=== PATIENT | female | born 1995 | race American Indian/Alaskan Native ===

== ENCOUNTER 2016-07-03 23:37 | Outpatient (CLI) | payer MEDICAID ==
[2016-07-04] MEDS ORDERED: LACTATED RINGERS 500 ML IV ONE (00:21)
== END 2016-07-04 00:57 | disposition home or self-care (01) ==
LOC: TRG 23:37
PROVIDERS: ATTEND Obstetrics & Gynecology
DX: O26.892 Other specified pregnancy related conditions, second trimester (principal); O21.9 Vomiting of pregnancy, unspecified; R11.0 Nausea; R51 Headache; O77.9 Labor and delivery complicated by fetal stress, unspecified; Z3A.20 20 weeks gestation of pregnancy

== ENCOUNTER 2016-10-22 22:02 | Outpatient (CLI) | payer MEDICAID ==
[2016-10-22 22:43] VITALS: BP 106/62
[2016-10-23] MEDS ORDERED: LACTATED RINGERS 1,000 ML ONE (00:03)
[2016-10-23 00:07] LABS: Hematocrit 28.1 % (30.3-42.9); Hemoglobin 9.2 gm/dl (10.1-14.3); Mean Corpuscular HGB Conc 33 % (30-34); Mean Corpuscular Hemoglobin 27 pg (28-32); Mean Corpuscular Volume 83 fl (79-97); Platelet Count 293 K/mm3 (140-440); Red Cell Distribution Width 14.8 % (13.2-15.2); White Blood Count 8.1 K/mm3 (4.5-11.0)
[2016-10-23] MEDS ORDERED: LACTATED RINGERS 1,000 ML IV SCH (00:30)
[2016-10-23] MEDS ORDERED: PEPCID IV ONE ×2 (00:30→00:32)
[2016-10-23 00:33] LABS: Alanine Aminotransferase 14 units/L (7-56); Albumin 3.1 g/dL (3.9-5); Albumin/Globulin Ratio 0.9 %; Alkaline Phosphatase 137 units/L (35-129); Anion Gap 18 mmol/L; BUN/Creatinine Ratio 16.66; Bilirubin,Total 0.2 mg/dL (0.1-1.2); Blood Urea Nitrogen 5 mg/dL (7-17); Calcium 8.7 mg/dL (8.4-10.2); Carbon Dioxide 21 mmol/L (22-30); Chloride 100.6 mmol/L (98-107); Glucose 73 mg/dL (65-100); Potassium 4.6 mmol/L (3.6-5.0); Sodium 135 mmol/L (137-145); Total Protein 6.4 g/dL (6.3-8.2)
[2016-10-23 02:07] LABS: Amylase 99 units/L (27-131); Lipase 115 units/L (13-60)
== END 2016-10-23 02:00 | disposition home or self-care (01) ==
LOC: TRG 22:02
PROVIDERS: ATTEND Obstetrics & Gynecology
DX: O47.03 False labor before 37 completed weeks of gestation, third trimester (principal); Z3A.36 36 weeks gestation of pregnancy
CPT/HCPCS: 36415; 80053; 82150; 83690; 85027; 96360; 96374; J7120

== ENCOUNTER 2016-11-02 20:58 | Outpatient (CLI) | payer MEDICAID ==
[2016-11-02 21:16] VITALS: BP 119/59
== END 2016-11-02 21:44 | disposition home or self-care (01) ==
LOC: TRG 20:58
PROVIDERS: ATTEND Obstetrics & Gynecology
DX: O26.893 Other specified pregnancy related conditions, third trimester (principal); O62.9 Abnormality of forces of labor, unspecified; Z3A.39 39 weeks gestation of pregnancy
CPT/HCPCS: 59025

== ENCOUNTER 2016-11-13 00:40 | Outpatient (CLI) | payer MEDICAID ==
[2016-11-13 00:55] VITALS: BP 125/71
--- NOTE | 2016-11-13 07:38 | Ultrasound Report ---
BIOPHYSICAL PROFILE: INDICATION: well being. COMPARISON: None similar. TECHNIQUE: Transabdominal ultrasound with Doppler interrogation. 2 - breathing movements 2 - movements 2 - posture and tone 2 - Qualitative amniotic fluid volume 8 - TOTAL SCORE OF POSSIBLE 8 Heart Rate (bpm) 137
--- NOTE | 2016-11-13 07:41 | Ultrasound Report ---
OB LIMITED INDICATION: well being. COMPARISON: None similar at this institution. TECHNIQUE: Transabdominal grayscale ultrasound with Doppler interrogation. Gestation: Torres Amniotic Fluid: Increased (>24 cm) ISAAC = 24.9 cm Heart Rate: 129 BPM
== END 2016-11-13 03:50 | disposition home or self-care (01) ==
LOC: TRG 00:40
PROVIDERS: ATTEND Obstetrics & Gynecology
DX: O47.1 False labor at or after 37 completed weeks of gestation (principal); Z3A.39 39 weeks gestation of pregnancy
CPT/HCPCS: 76815; 76819

== ENCOUNTER 2017-02-24 20:36 | Emergency (ER) | payer MEDICAID, OTHER ==
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
[2017-02-24 22:15] LABS: Bilirubin,Urine NEG (Negative); Blood,Urine LG (Negative); Ketones,Urine TR mg/dL (Negative); Leukocyte Esterase,Urine MOD (Negative); Mucus,Urine 3+ /HPF; Nitrite,Urine NEG (Negative); Urobilinogen,Urine < 2.0 mg/dL (<2.0)
[2017-02-24 22:17] LABS: RBC,Urine > 182.0 /HPF (0.0-6.0)
[2017-02-24] MEDS ORDERED: MOTRIN PO ONE (23:37)
[2017-02-24] MEDS ORDERED: MOTRIN ONE (23:39)
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
[2017-02-25] MEDS ORDERED: FLEXERIL PO ONE (00:19)
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
[2017-02-25 02:26] VITALS: BP 105/98
== END 2017-02-25 02:26 | disposition home or self-care (01) ==
LOC: ED 20:36
DX: S13.4XXA Sprain of ligaments of cervical spine, initial encounter (principal); S80.02XA Contusion of left knee, initial encounter; N39.0 Urinary tract infection, site not specified; M25.552 Pain in left hip; R51 Headache; R07.81 Pleurodynia; Z87.891 Personal history of nicotine dependence; Z88.6 Allergy status to analgesic agent; Z88.8 Allergy status to other drugs, medicaments and biological substances; V89.2XXA Person injured in unspecified motor-vehicle accident, traffic, initial encounter; Y93.89 Activity, other specified; Y99.8 Other external cause status; Y92.89 Other specified places as the place of occurrence of the external cause
CPT/HCPCS: 70450; 71020; 71110; 72125; 81001; 81025

== ENCOUNTER 2017-10-22 16:27 | Emergency (ER) | payer SELFPAY ==
[2017-10-22 17:12] LABS: Basophils # (Auto) 0.1 K/mm3 (0.0-0.1); Basophils % (Auto) 0.6 % (0.0-1.8); Eosinophils % (Auto) 0.5 % (0.0-4.3); Hematocrit 33.1 % (30.3-42.9); Hemoglobin 11.3 gm/dl (10.1-14.3); Lymphocytes # (Auto) 1.4 K/mm3 (1.2-5.4); Lymphocytes % (Auto) 16.4 % (13.4-35.0); Mean Corpuscular HGB Conc 34 % (30-34); Mean Corpuscular Hemoglobin 31 pg (28-32); Mean Corpuscular Volume 89 fl (79-97); Monocytes # (Auto) 0.5 K/mm3 (0.0-0.8); Platelet Count 353 K/mm3 (140-440); Red Cell Distribution Width 13.4 % (13.2-15.2)
--- NOTE | 2017-10-22 18:00 | Emergency Department Report ---
ED Female HPI - General Chief complaint: Abdominal Pain Stated complaint: BACK/PELVIC PAIN Time Seen by Provider: 10/22/17 17:53 Source: patient Mode of arrival: Ambulatory Limitations: No Limitations - History of Present Illness Initial comments: Patient is 21 years old female 6 para 3 with 2 . Patient presented to the ER complaining of lower abdominal pain and vaginal bleeding for the last 4 days. Patient did not have any care so far. Last menstrual period was 05/01/2017. Denied any nausea or vomiting. no fever. MD Complaint: vaginal bleeding, pelvic pain -: days(s) Radiation: suprapubic Quality: cramping - Related Data Previous Rx's Medication Instructions Recorded Last Taken Type Cyclobenzaprine [Flexeril] 10 mg PO TID PRN #15 tablet 02/25/17 Unknown Rx Ibuprofen [Motrin 600 MG tab] 600 mg PO Q8H PRN #30 tablet 02/25/17 Unknown Rx Sulfamethoxazole/Trimethoprim 1 each PO BID #14 tablet 02/25/17 Unknown Rx [Bactrim DS TAB] Allergies Allergy/AdvReac Type Severity Reaction Status Date / Time morphine Allergy Itching Verified 06/19/16 22:47 diphenhydramine HCl AdvReac Itching Verified 04/15/16 10:58 [From Benadryl] ED Review of Systems ROS: Stated complaint: BACK/PELVIC PAIN Other details as noted in HPI Comment: All other systems reviewed and negative Constitutional: denies: chills, fever Respiratory: denies: cough, orthopnea, shortness of breath, SOB with exertion, SOB at rest, wheezing Cardiovascular: denies: chest pain, palpitations, dyspnea on exertion Gastrointestinal: abdominal pain. denies: nausea, vomiting, diarrhea, constipation, hematemesis, melena, hematochezia Genitourinary: denies: urgency, dysuria, frequency, discharge, dyspareunia Musculoskeletal: denies: back pain Neurological: denies: headache, weakness, numbness, paresthesias, confusion, abnormal gait, vertigo ED Past Medical Hx - Past Medical History Previous Medical History?: Yes Hx Hypertension: No Hx Diabetes: No Hx Deep Vein Thrombosis: No Hx Renal Disease: No Hx Sickle Cell Disease: No Hx Seizures: No Hx Asthma: No Hx HIV: No Additional medical history: vaginal deleivery x 3 - Surgical History Past Surgical History?: No - Social History Smoking Status: Never Smoker Substance Use Type: Marijuana - Medications Home Medications: Home Medications Medication Instructions Recorded Confirmed Last Taken Type Cyclobenzaprine [Flexeril] 10 mg PO TID PRN #15 tablet 02/25/17 Unknown Rx Ibuprofen [Motrin 600 MG tab] 600 mg PO Q8H PRN #30 tablet 02/25/17 Unknown Rx Sulfamethoxazole/Trimethoprim 1 each PO BID #14 tablet 02/25/17 Unknown Rx [Bactrim DS TAB] ED Physical Exam - General Limitations: No Limitations General appearance: alert, in no apparent distress - Head Head exam: Present: atraumatic, normocephalic, normal inspection - Eye Eye exam: Present: normal appearance, PERRL - ENT ENT exam: Present: normal exam, normal orophraynx, mucous membranes moist - Neck Neck exam: Present: normal inspection, full ROM. Absent: tenderness, meningismus, lymphadenopathy, thyromegaly - Respiratory Respiratory exam: Present: normal lung sounds bilaterally. Absent: respiratory distress, wheezes, rales, rhonchi, stridor, chest wall tenderness, accessory muscle use, decreased breath sounds, prolonged expiratory - Cardiovascular Cardiovascular Exam: Present: regular rate, normal rhythm, normal heart sounds - GI/Abdominal GI/Abdominal exam: Present: soft, normal bowel sounds, organomegaly (gravid uterus). Absent: distended, tenderness, guarding, rebound, rigid, mass, bruit, pulsatile mass, hernia - Extremities Exam Extremities exam: Present: normal inspection, full ROM, normal capillary refill. Absent: pedal edema, calf tenderness - Back Exam Back exam: Present: normal inspection, full ROM. Absent: tenderness, CVA tenderness (R), CVA tenderness (L) - Neurological Exam Neurological exam: Present: alert, oriented X3, CN II-XII intact, reflexes normal. Absent: normal gait, abnormal gait - Skin Skin exam: Present: warm, intact ED Course Vital Signs 10/22/17 10/22/17 10/22/17 16:37 18:31 18:53 Temperature 98.8 F Pulse Rate 93 H 84 Respiratory 16 18 16 Rate Blood Pressure 131/58 Blood Pressure 94/49 [Left] O2 Sat by Pulse 100 99 100 Oximetry 10/22/17 19:19 Temperature Pulse Rate 88 Respiratory 18 Rate Blood Pressure Blood Pressure 102/56 [Left] O2 Sat by Pulse 99 Oximetry ED Medical Decision Making - Lab Data Result diagrams: 10/22/17 16:53 10/22/17 18:09 - Radiology Data Radiology results: report reviewed Referring Physician: JUAN MANUEL MARTÍNEZ Patient Name: DARRIUS CURRY Date of : 1995 Sex: Female Report Date: 2017-10-22 Report Status: Finalized Findings [facility] [address] [place] [address] Ultrasound Report Signed Patient: DARRIUS CURRY MR#: [id number] : 1995 Acct:[id number] Age/Sex: 21 / F ADM Date: 10/22/17 Loc: ED Attending Dr: Ordering Physician: JUAN MANUEL MARTÍNEZ Date of Service: 10/22/17 Procedure(s): US OB >= 14 weeks Fetus Accession Number(s): [id number] cc: JUAN MANUEL MARTÍNEZ FINAL REPORT PROCEDURE: US OB gt; = 14 WEEKS FETUS TECHNIQUE: Real-time transabdominal sonography of the uterus, placenta, amniotic fluid, adnexa, and fetus was performed with image documentation. Measurements were obtained to determine age/size. M-mode Doppler was used to document heartbeat. CPT 75089 HISTORY: unconfirmed with low back and pelvic pain COMPARISON: No prior studies are available for comparison. FINDINGS: ADDITIONAL GESTATION: None. GENERAL: IUP: Single living intrauterine . Position: Cephalic Placental position: Anterior and grade 1, without previa. Amniotic fluid volume: Not measured but subjectively within normal limits MATERNAL: Uterus: Within normal limits. Cervical length: Transabdominal measurement is 3.6 cm. Internal Os: Closed. FETUS: Heart rate and rhythm: 154 BPM, regular. anatomic survey: Fluid containing stomach, fluid containing urinary bladder, three-vessel cord, anterior abdominal wall cord insertion, four-chamber view of the heart, kidneys are unremarkable in appearance. spine is not well-visualized MEASUREMENTS: BPD: 4.6 centimeters, 20 weeks 0 days HC: 17.0 centimeters, 19 weeks 4 days AC: 13.4 centimeters, 18 weeks 6 days FL: 3.1 centimeters, 19 weeks 5 days Mean Gestational Age (composite criteria): 19 weeks 4 days based on biometry biometry ratio: HC/AC is mildly elevated, 1.27 Estimated Weight: 284 grams. Estimated Due Date: 03/14/2018 IMPRESSION: Single intrauterine gestation at 19 weeks 4 days based on biometric measurements. Estimated due date: 03/14/2018. Transcribed By: [facility] Dictated By: [place] BEAR M.D. Electronically Authenticated By: [place] BEAR M.D. Signed Date/Time: 10/22/171858 DD/ 58 TD/TT: 10/22/171858 Critical care attestation.: If time is entered above; I have spent that time in minutes in the direct care of this critically ill patient, excluding procedure time. ED Disposition Clinical Impression: Abdominal pain affecting , Heart burn Disposition: DC-01 TO HOME OR SELFCARE Is pt being admited?: No Condition: Stable Instructions: Abdominal Pain in (ED), Gastroesophageal Reflux Disease (ED) Referrals: PRIMARY MD LESLY [Primary Care Provider] - 3-5 Days RACHEL PEÑA MD [Staff Physician] - 3-5 Days
[2017-10-22 18:01] LABS: Bilirubin,Urine NEG (Negative); Blood,Urine SM (Negative); Color,Urine Yellow (Yellow); Mucus,Urine 3+ /HPF; Protein,Urine <15 mg/dL mg/dL (Negative); Urobilinogen,Urine < 2.0 mg/dL (<2.0)
--- NOTE | 2017-10-22 19:05 | Ultrasound Report ---
FINAL REPORT PROCEDURE: US OB > = 14 WEEKS FETUS TECHNIQUE: Real-time transabdominal sonography of the uterus, placenta, amniotic fluid, adnexa, and fetus was performed with image documentation. Measurements were obtained to determine age/size. M-mode Doppler was used to document heartbeat. CPT 32908 HISTORY: unconfirmed with low back and pelvic pain COMPARISON: No prior studies are available for comparison. FINDINGS: ADDITIONAL GESTATION: None. GENERAL: IUP: Single living intrauterine . Position: Cephalic Placental position: Anterior and grade 1, without previa. Amniotic fluid volume: Not measured but subjectively within normal limits MATERNAL: Uterus: Within normal limits. Cervical length: Transabdominal measurement is 3.6 cm. Internal Os: Closed. FETUS: Heart rate and rhythm: 154 BPM, regular. anatomic survey: Fluid containing stomach, fluid containing urinary bladder, three-vessel cord, anterior abdominal wall cord insertion, four-chamber view of the heart, kidneys are unremarkable in appearance. spine is not well-visualized MEASUREMENTS: BPD: 4.6 centimeters, 20 weeks 0 days HC: 17.0 centimeters, 19 weeks 4 days AC: 13.4 centimeters, 18 weeks 6 days FL: 3.1 centimeters, 19 weeks 5 days Mean Gestational Age (composite criteria): 19 weeks 4 days based on biometry biometry ratio: HC/AC is mildly elevated, 1.27 Estimated Weight: 284 grams. Estimated Due Date: 03/14/2018 IMPRESSION: Single intrauterine gestation at 19 weeks 4 days based on biometric measurements. Estimated due date: 03/14/2018.
[2017-10-22 19:07] LABS: BUN/Creatinine Ratio 17; Blood Urea Nitrogen 5 mg/dL (7-17); Hemolysis Index 12
[2017-10-22 20:14] VITALS: BP 108/51
== END 2017-10-22 20:14 | disposition home or self-care (01) ==
LOC: ED 16:27
DX: O26.892 Other specified pregnancy related conditions, second trimester (principal); R10.30 Lower abdominal pain, unspecified; R12 Heartburn; F12.10 Cannabis abuse, uncomplicated; Z3A.19 19 weeks gestation of pregnancy
CPT/HCPCS: 36415; 76805; 80048; 81001; 84702; 84703; 85025; 86850; 86900; 86901; 99284

== ENCOUNTER 2018-02-24 21:14 | Inpatient (IN) | payer MEDICAID ==
[2018-02-24] MEDS ORDERED: LACTATED RINGERS 1,000 ML IV ONE (22:03)
[2018-02-24] MEDS ORDERED: TYLENOL PO ONE (22:56)
[2018-02-24] MEDS ORDERED: PEPCID IV ONE (22:58)
[2018-02-24] MEDS ORDERED: BRETHINE SUB-Q PRN (23:00)
[2018-02-24] MEDS ORDERED: BRETHINE IVP PRN (23:00)
[2018-02-24] MEDS ORDERED: MINERAL OIL PO PRN (23:00)
[2018-02-24] MEDS ORDERED: SUBLIMAZE IV PRN (23:00)
[2018-02-24] MEDS ORDERED: XYLOCAINE 2% INFILTRATI ONE (23:00)
[2018-02-24] MEDS ORDERED: PITOCin/NS 30 UNIT/500ML 30 UNITS/500 ML BAG IV SCH (23:00)
[2018-02-24] MEDS ORDERED: PITOCin/NS 20 UNIT/1000ML DRIP 20 UNITS/1,000 ML BAG IV SCH (23:00)
[2018-02-24 23:07] LABS: Hematocrit 26.1 % (30.3-42.9); Hemoglobin 8.9 gm/dl (10.1-14.3); Mean Corpuscular HGB Conc 34 % (30-34); Mean Corpuscular Hemoglobin 29 pg (28-32); Mean Corpuscular Volume 84 fl (79-97); Platelet Count 295 K/mm3 (140-440); Red Blood Count 3.11 M/mm3 (3.65-5.03); Red Cell Distribution Width 15.2 % (13.2-15.2)
[2018-02-24] MEDS: LACTATED RINGERS 1,000 ML IV SCH (23:25)
[2018-02-24] MEDS ORDERED: POLYCILLIN/NS 2 GM/100 ML 2 GM/100 ML BAG IV ONE (23:32)
[2018-02-25] MEDS: LACTATED RINGERS 1,000 ML IV SCH ×2 (00:37→02:04)
[2018-02-25] MEDS ORDERED: NARCAN 2 MG/2 ML IV PRN (01:39)
[2018-02-25] MEDS ORDERED: ZOFRAN IV PRN ×2 (01:39→05:32)
[2018-02-25] MEDS ORDERED: fentaNYL-BUPIV 2 MCG/ML-0.125% 200 MCG/100 ML BAG EPIDURAL SCH (02:00)
[2018-02-25] MEDS ORDERED: AMPICILLIN/NS 1 GM/50 ML 1 GM/50 ML BAG IV SCH (03:36)
[2018-02-25] MEDS: PITOCin/NS 20 UNIT/1000ML DRIP 20 UNITS/1,000 ML BAG IV SCH ×2 (05:19→06:52)
--- NOTE | 2018-02-25 05:31 | History and Physical Report ---
History of Present Illness Date of examination: 02/25/18 Date of admission: 02/24/18 22:07 Chief complaint: leaking History of present illness: This is a 22 yo at 37 weeka admitted to labor and delivery for PROM. She is a patient of [place]. Past History Past Medical History: no pertinent history Past Surgical History: no surgical history Family/Genetic History: none Social history: single. denies: smoking, alcohol abuse, prescription drug abuse - Obstetrical History : 6 Medications and Allergies Allergies Allergy/AdvReac Type Severity Reaction Status Date / Time morphine Allergy Itching Verified 06/19/16 22:47 diphenhydramine HCl AdvReac Itching Verified 04/15/16 10:58 [From [facility]] Home Medications Medication Instructions Recorded Confirmed Last Taken Type Cyclobenzaprine [Flexeril] 10 mg PO TID PRN #15 tablet 02/25/17 Unknown Rx Ibuprofen [Motrin 600 MG tab] 600 mg PO Q8H PRN #30 tablet 02/25/17 Unknown Rx Sulfamethoxazole/Trimethoprim 1 each PO BID #14 tablet 02/25/17 Unknown Rx [Bactrim DS TAB] Famotidine [Pepcid] 20 mg PO DAILY #30 tablet 10/22/17 Unknown Rx Vit Calc,Iron,Folic 1 each PO DAILY #30 tablet 10/22/17 Unknown Rx [ Vitamins] Active Meds: Active Medications Ephedrine Sulfate (Ephedrine Sulfate) 10 mg IV Q2M PRN PRN Reason: Hypotension Ephedrine Sulfate (Ephedrine Sulfate) 10 mg IV Q2M PRN PRN Reason: Hypotension Fentanyl (Sublimaze) 100 mcg IV Q2H PRN PRN Reason: Labor Pain Last Admin: 02/25/18 00:02 Dose: 100 mcg Lactated Ringer's (Lactated Ringers) 1,000 mls @ 125 mls/hr IV DIRECT CARMINE Last Admin: 02/25/18 02:04 Dose: 125 mls/hr Oxytocin/Sodium Chloride (Pitocin/Ns 20 Unit/1000ml Drip) 20 units in 1,000 mls @ 125 mls/hr IV DIRECT CARMINE Oxytocin/Sodium Chloride (Pitocin/Ns 30 Unit/500ml) 30 units in 500 mls @ 1 mls /hr IV TITR CARMINE; Protocol Last Admin: 08/29/18 23:24 Dose: 1 milliunits/min, 1 mls/hr Ampicillin Sodium (Ampicillin/Ns 1 Gm/50 Ml) 1 gm in 50 mls @ 100 mls/hr IV Q4HR CARMINE Stop: 02/25/18 12:00 Last Admin: 02/25/18 03:33 Dose: 100 mls/hr Fentanyl/Bupivacaine/Sodium Chlor (Fentanyl-Bupiv 2 Mcg/Ml-0.125%) 200 mcg in 100 mls @ 12 mls/hr EPIDURAL TITR CARMINE; Protocol Last Admin: 02/25/18 02:25 Dose: 12 mls/hr Mineral Oil (Mineral Oil) 30 ml PO QHS PRN PRN Reason: Constipation Naloxone HCl (Narcan 2 Mg/2 Ml) 0.2 mg IV Q5M PRN PRN Reason: Respiratory sedation Ondansetron HCl (Zofran) 4 mg IV Q8H PRN PRN Reason: Nausea And Vomiting Terbutaline Sulfate (Brethine) 0.25 mg SUB-Q ONCE PRN PRN Reason: Hyperstimulation/Hypertonicity Terbutaline Sulfate (Brethine) 0.25 mg IVP ONCE PRN PRN Reason: Hyperstimulation/Hypertonicity Review of Systems All systems: negative Genitourinary: leakage of fluid - Vital Signs Vital signs: Vital Signs Pulse BP 84 117/60 02/24/18 21:39 02/24/18 21:39 Temp Pulse Resp BP Pulse Ox 98.5 F 71 16 85/45 99 02/24/18 21:45 02/25/18 05:16 02/25/18 00:32 02/25/18 04:15 02/25/18 05:16 - Physical Exam Breasts: Positive: normal Cardiovascular: Regular rate, Normal S1 Lungs: Positive: Clear to auscultation, Normal air movement Abdomen: Positive: normal appearance, soft, normal bowel sounds. Negative: distention, tenderness, guarding Genitourinary (Female): Positive: normal external genitalia, normal perenium Vulva: both: normal Uterus: Positive: normal size Extremities: Positive: normal Deep Tendon Reflex Grade: Normal +2 - Obstetrical FHR: category 1 Uterine Contraction Monitor Mode: Palpation Cervical Dilatation: 2 Cervical Effacement Percentage: 50 station: -2 Uterine Contraction Pattern: Regular Uterine Tone Measurement Phase: Contraction Uterine Contraction Intensity: Mild Results Result Diagrams: 02/24/18 22:20 Abnormal lab results 02/24/18 Range/Units 22:20 RBC 3.11 L (3.65-5.03) M/mm3 Hgb 8.9 L (10.1-14.3) gm/dl Hct 26.1 L (30.3-42.9) % All other labs normal. Assessment and Plan A/P IUP 37 weeks PROM Augmentation of labor with low dose pitocin Records unavailable GBS prophylaxis given offer epidural expect vaginal delivery
[2018-02-25] MEDS ORDERED: PHENERGAN PR PRN (05:32)
[2018-02-25] MEDS ORDERED: PHENERGAN PO PRN (05:32)
[2018-02-25] MEDS ORDERED: TYLENOL PO PRN (05:32)
[2018-02-25] MEDS ORDERED: LANSINOH TP PRN (05:32)
[2018-02-25] MEDS ORDERED: MILK OF MAGNESIA PO PRN (05:32)
[2018-02-25] MEDS ORDERED: BENADRYL PO PRN (05:32)
[2018-02-25] MEDS ORDERED: NORCO 5/325 PO PRN (05:32)
[2018-02-25] MEDS ORDERED: PERCOCET 5/325 PO PRN (05:32)
[2018-02-25] MEDS ORDERED: DULCOLAX PR PRN (05:32)
[2018-02-25] MEDS ORDERED: TUCKS PAD TP PRN (05:32)
--- NOTE | 2018-02-25 05:45 | Procedure Note ---
OB Delivery Note - Delivery Date of Delivery: 02/25/18 Surgeon: SHAHEEN NAVARRETE Estimated blood loss: 200cc - Vaginal Delivery presentation: vertex Delivery position: OA Delivery induction: none Delivery augmentation: pitocin Delivery monitor: external FHT, external uterine Route of delivery: Delivery placenta: spontaneous Delivery cord: 3 umbilical vessels Episiotomy: none Delivery laceration: none Anesthesia: epidural Delivery comments: Patient was noted to be c/c+1 and commenced to pushing a viable male at 518 . The baby placed on mom's chest short cord noted. The cord was clamped and cut. The placenta delivered spontaeously intact with three vessel cord at 519 . Apgars 8 and 9. Weight of the baby was 6 pounds 3.7 oz. EBL noted to be 200 cc. No lacs noted. Patient bonding with baby. - Infant A at 1 minute: 8 at 5 minutes: 9 Gender: Male
[2018-02-25] MEDS ORDERED: SODIUM CHLORIDE FLUSH SYRINGE 10 ML IV NR (06:00)
[2018-02-25] MEDS: MOTRIN PO SCH ×3 (07:19→23:00)
[2018-02-25] MEDS ORDERED: PRENATAL VITAMIN PO SCH (10:00)
[2018-02-25] MEDS ORDERED: ALUM-MAG HYDROX-SIMETH 200-200-20MG/5ML PO PRN (11:00)
[2018-02-25] MEDS: NORCO 5/325 PO PRN ×3 (12:00→22:58)
--- NOTE | 2018-02-25 13:33 | Progress Note ---
Assessment and Plan O: VSS AF PP H/H: pending A: Stable PP Day 1 P; D/C at 24 hrs Subjective - Subjective Date of service: 02/25/18 Patient reports: appetite normal, voiding normally, pain well controlled ( afterbirth pains), ambulating normally, other (youngest child with hand mouth feet diease, being care for by friend with 3 children who is concerned about her childern getting sick. Pt voiced must leave in order to care for sick child. Willing to stay recommended 24hrs. ) [place]: doing well Objective - Vital Signs Latest vital signs: Vital Signs Temp Pulse Resp BP BP Pulse Ox 02/25/18 12:00 20 02/25/18 07:45 98.2 F 81 16 117/68 100 02/25/18 06:40 96.6 F L 02/25/18 06:08 67 117/55 02/25/18 05:40 96.9 F L 02/25/18 05:16 71 99 02/25/18 05:11 91 H 99 02/25/18 05:10 88 90 02/25/18 05:06 69 97 02/25/18 05:01 65 99 02/25/18 04:56 76 100 02/25/18 04:51 69 100 02/25/18 04:46 73 100 02/25/18 04:41 78 99 02/25/18 04:36 74 100 02/25/18 04:31 72 100 02/25/18 04:26 72 100 02/25/18 04:21 87 97 02/25/18 04:16 69 99 02/25/18 04:15 68 85/45 02/25/18 04:11 79 99 02/25/18 04:06 75 100 02/25/18 04:01 70 100 02/25/18 03:56 72 98 02/25/18 03:51 83 100 02/25/18 03:47 83 112/54 02/25/18 03:46 69 99 02/25/18 03:41 79 99 02/25/18 03:36 68 99 02/25/18 03:31 69 99 02/25/18 03:26 71 100 02/25/18 03:21 92 H 99 02/25/18 03:16 74 103/59 100 02/25/18 03:11 81 99 08/30/18 03:06 73 100 18 03:01 75 99 02/25/18 02:56 70 100 02/25/18 02:51 74 100 18 02:46 69 100 18 02:45 65 104/63 02/25/18 02:41 73 100 18 02:36 84 100 18 02:31 70 100 18 02:26 74 100 18 02:25 69 112/56 18 02:21 66 100 18 02:16 65 100 18 02:11 88 100 18 02:06 76 98 02/25/18 02:01 76 97 02/25/18 01:58 77 108/58 18 01:56 77 98 18 01:51 80 97 02/25/18 01:48 78 108/56 18 01:46 79 97 02/25/18 01:41 78 98 02/25/18 01:37 73 104/57 18 01:36 83 99 18 01:35 68 111/57 02/25/18 01:33 90 108/57 18 01:31 93 H 124/58 99 18 01:29 90 107/55 18 01:27 76 114/58 18 01:26 82 99 18 01:25 77 107/58 18 01:23 74 105/57 18 01:21 83 99 18 01:20 85 140/56 18 01:19 72 81 L 02/25/18 01:16 83 100 18 01:15 90 113/60 18 01:11 88 100 18 01:06 82 98 18 00:56 88 100 18 00:51 86 98 18 00:46 85 99 18 00:41 77 97 18 00:36 87 98 18 00:32 16 02/25/18 00:31 86 98 02/25/18 00:26 83 97 08/30/18 00:23 16 02/25/18 00:21 89 98 02/25/18 00:16 82 99 02/25/18 00:11 85 97 02/25/18 00:06 94 H 98 02/25/18 00:04 86 116/60 02/25/18 00:03 60 91 02/25/18 00:02 16 02/25/18 00:01 83 98 02/24/18 23:56 86 99 02/24/18 23:51 73 99 02/24/18 23:23 16 02/24/18 21:45 98.5 F 84 18 117/60 02/24/18 21:39 84 117/60 Intake and Output 02/24/18 02/25/18 02/25/18 22:59 06:59 14:59 Intake Total 718.75 Output Total 600 Balance 718.75 -600 Intake: IV 718.75 Lactated Ringers 1,000 ml 331.25 @ 125 mls/hr IV DIRECT CARMINE Rx#:[id number] PITOCin/NS 20 UNIT/1000ML 387.5 DRIP 20 units In 1,000 ml @ 250 mls/hr IV DIRECT CARMINE Rx#:[id number] Output: Urine 600 Void 600 Other: Total, Output Amount 600 Weight 61.235 kg Estimated Blood Loss 200 - Exam Breasts: Present: deferred Abdomen: Present: normal appearance, soft. Absent: distention, tenderness Uterus: Present: normal, firm, fundal height below umbilicus. Absent: bogginess , tenderness Extremities: Present: normal - Labs Labs: Abnormal lab results 02/24/18 Range/Units 22:20 RBC 3.11 L (3.65-5.03) M/mm3 Hgb 8.9 L (10.1-14.3) gm/dl Hct 26.1 L (30.3-42.9) %
--- NOTE | 2018-02-25 13:34 | Discharge Summary ---
Providers - Providers Date of Admission: 02/24/18 22:07 Date of discharge: 02/26/18 Attending physician: SHAHEEN NAVARRETE MD Primary care physician: SHAHEEN NAVARRETE MD Hospitalization Reason for admission: active labor, IUP at term Delivery: Episiotomy: none Laceration: none Other procedures: none complications: none Discharge diagnosis: IUP at term delivered [place] baby: male Condition at discharge: Good Disposition: DC-01 TO HOME OR SELFCARE Plan - Discharge Medications Prescriptions: Ferrous Sulfate 325 mg PO TID #60 tablet. HYDROcodone/APAP 5-325 [Jal 5/325] 1 each PO Q6HR PRN #20 tablet PRN Reason: Pain Ibuprofen [Motrin] 600 mg PO Q8H PRN #30 tablet PRN Reason: Pain - Provider Discharge Summary Activity: routine, no sex for 6 weeks, no heavy lifting 4 weeks, no strenuous exercise Diet: routine Instructions: routine Additional instructions: [] Smoking cessation referral if applicable(refer to patient education folder for contact #) [] Refer to [facility]'s [facility] Booklet Call your doctor immediately for: * Fever > 100.5 * Heavy vaginal bleeding ( >1 pad per hour) * Severe persistent headache * Shortness of breath * Reddened, hot, painful area to leg or breast * Drainage or odor from incision. * Keep incision clean and dry at all times and follow doctor's instructions regarding bathing/showering - Follow up plan Follow up: SHAHEEN NAVARRETE MD [Primary Care Provider] - (RTO for circumcision)
[2018-02-25 19:16] LABS: Hematocrit 24.2 % (30.3-42.9); Hemoglobin 8.1 gm/dl (10.1-14.3)
[2018-02-25] MEDS: COLACE PO SCH (22:58)
[2018-02-26] MEDS ORDERED: M-M-R II VACCINE SUB-Q ONE (05:32)
[2018-02-26] MEDS ORDERED: BOOSTRIX IM ONE (05:32)
[2018-02-26 09:32] VITALS: BP 103/58
[2018-02-26] MEDS: COLACE PO SCH (12:05)
[2018-02-26] MEDS: NORCO 5/325 PO PRN (12:05)
[2018-02-26] MEDS: MOTRIN PO SCH (12:05)
== END 2018-02-26 13:15 | disposition home or self-care (01) | DRG 775 ==
LOC: TRG 21:14 → LD 22:07 → OB 02-25 07:55
PROVIDERS: ADMIT Obstetrics & Gynecology; ATTEND Obstetrics & Gynecology
PROC: 10E0XZZ Delivery of Products of Conception, External Approach (ICD-10-PCS; principal; 2018-02-25)
PROC: 3E0R3BZ Introduction of Anesthetic Agent into Spinal Canal, Percutaneous Approach (ICD-10-PCS; 2018-02-25)
PROC: 00HU33Z Insertion of Infusion Device into Spinal Canal, Percutaneous Approach (ICD-10-PCS; 2018-02-25)
DX: O42.92 Full-term premature rupture of membranes, unspecified as to length of time between rupture and onset of labor (principal); Z3A.37 37 weeks gestation of pregnancy; Z37.0 Single live birth; Z88.8 Allergy status to other drugs, medicaments and biological substances
CPT/HCPCS: 36415; 85014; 85018; 85027; 86592; 86850; 86900; 86901; 87806; 90707; J0290; J2590; J3010; J7120